=== PATIENT | male | born 1985 | race Caucasian/White ===

== ENCOUNTER 2022-11-10 00:43 | Emergency (ER) | payer OTHER ==
[~2022-11-10] VITALS: Ht 182.9 cm; Wt 117.9 kg
--- NOTE | 2022-11-10 01:05 | NUR ---
BIBWIFE FROM HOME C/O PALPIATIONS AND ARM PAIN. PT A/OX4. TOLERATING R/A WELL WITH NO RESP DISTRESS. IN BED. SAFETY MEASURES IN PLACE
--- NOTE | 2022-11-10 01:15 | NUR ---
EKG DONE AT BEDSIDE
--- NOTE | 2022-11-10 01:24 | NUR ---
SEEN BY MD AT BEDSIDE
--- NOTE | 2022-11-10 01:44 | NUR ---
Patient discharged to home in stable condition. Written and verbal after care instructions given. Patient verbalizes understanding of instruction.
[2022-11-10 01:45] VITALS: BP 167/107
== END 2022-11-10 01:46 | disposition home or self-care (01) ==
LOC: ER 00:46
DX: R03.0 Elevated blood-pressure reading, without diagnosis of hypertension (principal); Z60.2 Problems related to living alone